=== PATIENT | female | born 1940 | race Caucasian/White ===

== ENCOUNTER 2023-06-01 23:55 | Inpatient (IN) | payer MEDICARE ==
[~2023-06-01] VITALS: Ht 165.1 cm; Wt 55.3 kg
[2023-06-02] MEDS ORDERED: CHOL200010 PO (00:18)
[2023-06-02] MEDS ORDERED: MELA3CAP2 PO (00:18)
[2023-06-02] MEDS ORDERED: GUAI-1197 PO (00:18)
[2023-06-02] MEDS ORDERED: ACET-73 PO (00:18)
[2023-06-02] MEDS ORDERED: TRIA60LO7 TOP (00:18)
[2023-06-02] MEDS ORDERED: ESCI20TA44 PO (00:18)
[2023-06-02] MEDS ORDERED: ACETAMINOPHEN 325 MG TABLET PO ONE (00:30)
[2023-06-02 01:03] LABS: CARBON DIOXIDE 30 mmol/L (21-32); CHLORIDE 104 mmol/L (98-107); CREATININE 1.1 mg/dL (0.6-1.3); GLUCOSE 92 mg/dL (74-106); POTASSIUM 3.7 mmol/L (3.5-5.1); SODIUM SERUM 141 mmol/L (136-145); UREA NITROGEN, BLOOD 26 mg/dL (7-18)
[2023-06-02] MEDS ORDERED: ACETAMINOPHEN 325 MG TABLET ONE (01:05)
[2023-06-02 01:14] LABS: ALANINE AMINOTRANSFERASE 17 U/L (14-59); ALBUMIN 3.2 g/dL (3.4-5.0); ALKALINE PHOSPHATASE 86 U/L (50-136); ASPARTATE AMINOTRANSFERASE 18 U/L (15-37); BILIRUBIN,TOTAL 0.5 mg/dL (0.2-1.0); TOTAL PROTEIN, SERUM 7.2 g/dL (6.4-8.2)
[2023-06-02 01:18] LABS: BASOPHILS % (AUTO) 0.7 % (0.0-2.0); EOSINOPHILS # (AUTO) 0.2 K/uL (0.0-0.7); EOSINOPHILS % (AUTO) 3.8 % (0.0-7.0); HEMATOCRIT 38.2 % (31.2-41.9); HEMOGLOBIN 12.7 g/dL (10.9-14.3); LYMPHOCYTES % (AUTO) 34.7 % (20.5-51.5); MEAN CORPUSCULAR HEMOGLOBIN 32.6 uug (24.7-32.8); MEAN CORPUSCULAR HGB CONC 33 g/dL (32.3-35.6); MEAN CORPUSCULAR VOLUME 97.7 fL (75.5-95.3); MONOCYTES # (AUTO) 0.5 K/uL (0.1-1.30); MONOCYTES % (AUTO) 8.8 % (0.0-11.0); NEUTROPHILS # (AUTO) 3.1 K/uL (1.8-8.9); PLATELET COUNT (AUTO) 172 K/uL (179-408); RED BLOOD CELL COUNT(AUTO) 3.91 MIL/uL (3.63-4.92); WHITE BLOOD COUNT (AUTO) 5.9 K/uL (3.8-11.8)
[2023-06-02 01:45] LABS: *BILIRUBIN,URIN NEGATIVE (NEGATIVE); *BLOOD, URINE 1+ (NEGATIVE); *COLOR,URINE YELLOW (YELLOW); *KETONES,URINE NEGATIVE (NEGATIVE); *PROTEIN,URINE NEGATIVE (NEGATIVE); *UROBILINOGEN,URINE 0.2 E.U./dl (NORMAL); LEUKOCYTE ESTERASE ,URINE 1+ (NEGATIVE); NITRITE, URINE POSITIVE (NEGATIVE); PH,URINE 5.5 (5.0-8.0); UGLUCOSE NEGATIVE (NEGATIVE)
[2023-06-02 01:46] LABS: *CLARITY,URINE CLOUDY (CLEAR)
[2023-06-02] MEDS ORDERED: ACETAMINOPHEN 650 MG SUPP.RECT RC PRN (02:00)
[2023-06-02] MEDS ORDERED: ONDANSETRON 4 MG/2 ML VIAL IV PRN (02:00)
[2023-06-02] MEDS ORDERED: MORPHINE SULFATE 2 MG/1 ML DISP.SYRIN IV PRN ×2 (02:00→08:20)
[2023-06-02] MEDS ORDERED: REMEDY ESSENTIAL ZINC PASTE 113 GM TP PRN (02:00)
[2023-06-02 03:08] LABS: BACTERIA,URINE MANY /HPF (NONE SEEN); SQUAMOUS EPITHELIAL CELL,UR FEW /HPF (NONE SEEN); WBC,URINE TNTC /HPF (0-3)
[2023-06-02] MEDS ORDERED: LORAZEPAM 2 MG/1 ML VIAL ONE ×2 (05:12→10:55)
[2023-06-02] MEDS ORDERED: LORAZEPAM 2 MG/1 ML VIAL IV ONE (05:30)
[2023-06-02] MEDS ORDERED: ENOXAPARIN SODIUM 40 MG/0.4 ML DISP.SYRIN SQ ONE (08:06)
[2023-06-02] MEDS ORDERED: PANTOPRAZOLE SODIUM 40 MG VIAL ONE (08:06)
[2023-06-02] MEDS ORDERED: CEFTRIAXONE /D5W 50ML IVPB **ER PYXIS IV ONE (08:06)
[2023-06-02] MEDS: CEFTRIAXONE 1 G in IV DEXTROSE 5% 50 ML IV SCH (08:19)
[2023-06-02] MEDS: PANTOPRAZOLE SODIUM 40 MG VIAL IV SCH (08:52)
[2023-06-02] MEDS: ENOXAPARIN SODIUM 40 MG/0.4 ML DISP.SYRIN SQ SCH (08:53)
[2023-06-02] MEDS ORDERED: LORAZEPAM 2 MG/1 ML VIAL IV PRN (12:15)
[2023-06-02] MEDS: IV D5 1/2 NS 1000 ML 1,000 ML IV PRN (15:22)
[2023-06-02] MEDS ORDERED: DONE10TA11 PO (17:44)
[2023-06-02 22:00] VITALS: BP 149/69; TEMP 98.1
[2023-06-03 04:00] VITALS: BP 138/69; TEMP 97.8
[2023-06-03 05:22] LABS: BASOPHILS % (AUTO) 0.4 % (0.0-2.0); EOSINOPHILS # (AUTO) 0.1 K/uL (0.0-0.7); EOSINOPHILS % (AUTO) 2.6 % (0.0-7.0); HEMATOCRIT 37.6 % (31.2-41.9); HEMOGLOBIN 12.8 g/dL (10.9-14.3); LYMPHOCYTES # (AUTO) 1.4 K/uL (0.8-4.8); MEAN CORPUSCULAR HEMOGLOBIN 32.7 uug (24.7-32.8); MEAN CORPUSCULAR HGB CONC 34 g/dL (32.3-35.6); MEAN CORPUSCULAR VOLUME 96.4 fL (75.5-95.3); MONOCYTES # (AUTO) 0.4 K/uL (0.1-1.30); MONOCYTES % (AUTO) 9.1 % (0.0-11.0); NEUTROPHILS # (AUTO) 2.9 K/uL (1.8-8.9); NEUTROPHILS % (AUTO) 59.9 % (38.5-71.5); PLATELET COUNT (AUTO) 169 K/uL (179-408); RED CELL DISTRIBUTION WIDTH 13.4 % (12.3-17.7); WHITE BLOOD COUNT (AUTO) 4.9 K/uL (3.8-11.8)
[2023-06-03 05:25] LABS: DIFFERENTIAL COMMENT 1
[2023-06-03 05:43] LABS: CALCIUM 8.6 mg/dL (8.5-10.1); CARBON DIOXIDE 29 mmol/L (21-32); CHLORIDE 104 mmol/L (98-107); GLUCOSE 100 mg/dL (74-106); MAGNESIUM 1.9 mg/dL (1.8-2.4); PHOSPHOROUS 2.6 mg/dL (2.5-4.9); POTASSIUM 3.6 mmol/L (3.5-5.1); SODIUM SERUM 137 mmol/L (136-145); UREA NITROGEN, BLOOD 11 mg/dL (7-18)
[2023-06-03 05:57] LABS: THYROID STIMULATING HORMONE 2.761 mIU/mL (0.358-3.740)
[2023-06-03] MEDS: IV D5 1/2 NS 1000 ML 1,000 ML IV PRN ×2 (06:02→20:30)
[2023-06-03 08:00] VITALS: BP 129/69; TEMP 97.7; O2SAT 94
[2023-06-03] MEDS: CEFTRIAXONE 1 G in IV DEXTROSE 5% 50 ML IV SCH (08:10)
[2023-06-03] MEDS: ESCITALOPRAM OXALATE 10 MG TABLET PO SCH (08:29)
[2023-06-03] MEDS: ENOXAPARIN SODIUM 40 MG/0.4 ML DISP.SYRIN SQ SCH (08:34)
[2023-06-03] MEDS: PANTOPRAZOLE SODIUM 40 MG VIAL IV SCH (08:41)
[2023-06-03] MEDS: DONEPEZIL 10 MG TABLET PO SCH (09:12)
[2023-06-03 12:00] VITALS: BP 118/54; TEMP 97.9; O2SAT 95
[2023-06-03 20:00] VITALS: BP 122/77; TEMP 97.6; O2SAT 96
[2023-06-04] VITALS (7 sets, daily range): BP systolic 116–140; BP diastolic 71–82; TEMP 97.6–98.6; O2SAT 97–100
[2023-06-04] MEDS: CEFTRIAXONE 1 G in IV DEXTROSE 5% 50 ML IV SCH (08:35)
[2023-06-04] MEDS: ESCITALOPRAM OXALATE 10 MG TABLET PO SCH (08:38)
[2023-06-04] MEDS: DONEPEZIL 10 MG TABLET PO SCH (08:38)
[2023-06-04] MEDS: PANTOPRAZOLE SODIUM 40 MG VIAL IV SCH (08:38)
[2023-06-04] MEDS: ENOXAPARIN SODIUM 40 MG/0.4 ML DISP.SYRIN SQ SCH (08:40)
[2023-06-04] MEDS: IV D5 1/2 NS 1000 ML 1,000 ML IV PRN (16:39)
[2023-06-05] VITALS (9 sets, daily range): BP systolic 102–123; BP diastolic 49–64; TEMP 97.6–98.8; O2SAT 92–97
[2023-06-05] MEDS: IV D5 1/2 NS 1000 ML 1,000 ML IV PRN (05:07)
[2023-06-05 05:26] LABS: BASOPHILS % (AUTO) 0.9 % (0.0-2.0); EOSINOPHILS # (AUTO) 0.2 K/uL (0.0-0.7); EOSINOPHILS % (AUTO) 2.9 % (0.0-7.0); LYMPHOCYTES # (AUTO) 1.8 K/uL (0.8-4.8); LYMPHOCYTES % (AUTO) 34.7 % (20.5-51.5); MEAN CORPUSCULAR HEMOGLOBIN 32.8 uug (24.7-32.8); MEAN CORPUSCULAR HGB CONC 34 g/dL (32.3-35.6); MEAN CORPUSCULAR VOLUME 96.2 fL (75.5-95.3); MONOCYTES # (AUTO) 0.5 K/uL (0.1-1.30); MONOCYTES % (AUTO) 9.6 % (0.0-11.0); NEUTROPHILS # (AUTO) 2.7 K/uL (1.8-8.9); NEUTROPHILS % (AUTO) 51.9 % (38.5-71.5); PLATELET COUNT (AUTO) 182 K/uL (179-408); RED BLOOD CELL COUNT(AUTO) 3.95 MIL/uL (3.63-4.92); RED CELL DISTRIBUTION WIDTH 13.7 % (12.3-17.7); WHITE BLOOD COUNT (AUTO) 5.2 K/uL (3.8-11.8)
[2023-06-05 05:40] LABS: DIFFERENTIAL COMMENT 1
[2023-06-05 05:49] LABS: CALCIUM 8.4 mg/dL (8.5-10.1); MAGNESIUM 2.1 mg/dL (1.8-2.4); PHOSPHOROUS 2.5 mg/dL (2.5-4.9); POTASSIUM 3.5 mmol/L (3.5-5.1)
[2023-06-05] MEDS: PANTOPRAZOLE SODIUM 40 MG TABLET.DR PO SCH (06:29)
[2023-06-05] MEDS ORDERED: VANCOMYCIN 1000 MG VIAL ONE (06:37)
[2023-06-05] MEDS ORDERED: FENTANYL CITRATE 250 MCG/5 ML AMPUL ONE (07:17)
[2023-06-05] MEDS ORDERED: ONDANSETRON 4 MG/2 ML VIAL ONE (07:50)
[2023-06-05] MEDS ORDERED: CEFAZOLIN 1 G VIAL ONE (07:50)
[2023-06-05] MEDS ORDERED: DEXAMETHASONE SOD PHOSPHATE 4 MG INJ ONE (07:50)
[2023-06-05] MEDS ORDERED: KETOROLAC TROMETHAMINE 30 MG INJ ONE (07:50)
[2023-06-05] MEDS ORDERED: SUCCINYLCHOLINE CHLORIDE 200 MG/10 ML VIAL ONE (07:50)
[2023-06-05] MEDS ORDERED: GLYCOPYRROLATE 0.2 MG/ML VIAL ONE (07:50)
[2023-06-05] MEDS ORDERED: LIDOCAINE-MPF 2% 5 ML VIAL ONE (07:50)
[2023-06-05] MEDS ORDERED: EPHEDRINE SULFATE 50 MG/ML AMPUL ONE (07:50)
[2023-06-05] MEDS ORDERED: ESMOLOL HCL 100 MG/10 ML VIAL IV ONE ×2 (07:50→09:11)
[2023-06-05] MEDS ORDERED: PROPOFOL 200 MG/20 ML BOTTLE ONE (07:50)
[2023-06-05] MEDS: ESCITALOPRAM OXALATE 10 MG TABLET PO SCH (09:00)
[2023-06-05] MEDS: DONEPEZIL 10 MG TABLET PO SCH (09:00)
[2023-06-05] MEDS ORDERED: IV D5W-0.45% NS +20 KCL 1,000 ML IV ONE (09:08)
[2023-06-05] MEDS ORDERED: FENTANYL CITRATE 100 MCG/2 ML AMPUL ONE (09:15)
[2023-06-05] MEDS: IV D5W-0.45% NS +20 KCL 1,000 ML IV PRN ×2 (10:20→21:04)
[2023-06-05] MEDS: CEFTRIAXONE 1 G in IV DEXTROSE 5% 50 ML IV SCH (11:14)
[2023-06-05] MEDS: MORPHINE SULFATE 2 MG/1 ML DISP.SYRIN IV PRN ×2 (14:27→18:12)
[2023-06-05] MEDS: HYDROCODONE/APAP 10-325 MG TABLET PO PRN (20:30)
[2023-06-06 04:00] VITALS: BP 116/57; TEMP 97.4; O2SAT 94
[2023-06-06] MEDS: PANTOPRAZOLE SODIUM 40 MG TABLET.DR PO SCH (06:36)
[2023-06-06 08:00] VITALS: BP 110/50; TEMP 97.6; O2SAT 92
[2023-06-06 08:02] VITALS: O2SAT 95
[2023-06-06] MEDS: CEFTRIAXONE 1 G in IV DEXTROSE 5% 50 ML IV SCH (08:08)
[2023-06-06] MEDS: ESCITALOPRAM OXALATE 10 MG TABLET PO SCH (08:10)
[2023-06-06] MEDS: DONEPEZIL 10 MG TABLET PO SCH (08:10)
[2023-06-06] MEDS: SULFAMETH/TRIMETH 800/160 MG TABLET PO SCH ×2 (13:00→21:03)
[2023-06-06] MEDS: IV D5W-0.45% NS +20 KCL 1,000 ML IV PRN (13:01)
[2023-06-06 16:00] VITALS: BP 112/54; TEMP 98; O2SAT 92
[2023-06-06] MEDS: HYDROCODONE/APAP 10-325 MG TABLET PO PRN (18:21)
[2023-06-06 20:00] VITALS: BP 115/69; TEMP 98.3; O2SAT 95
[2023-06-06] MEDS ORDERED: TRAZODONE 100 MG TABLET PO PRN (21:45)
[2023-06-06] MEDS ORDERED: TRAZODONE 100 MG TABLET ONE (22:47)
[2023-06-07 04:00] VITALS: BP 111/74; TEMP 97; O2SAT 96
[2023-06-07] MEDS: PANTOPRAZOLE SODIUM 40 MG TABLET.DR PO SCH (06:08)
[2023-06-07 08:00] VITALS: BP 115/69; TEMP 98; O2SAT 97
[2023-06-07] MEDS: DONEPEZIL 10 MG TABLET PO SCH (08:45)
[2023-06-07] MEDS: SULFAMETH/TRIMETH 800/160 MG TABLET PO SCH ×2 (08:45→20:42)
[2023-06-07] MEDS: ESCITALOPRAM OXALATE 10 MG TABLET PO SCH (08:46)
[2023-06-07] MEDS: HYDROCODONE/APAP 10-325 MG TABLET PO PRN (09:09)
[2023-06-07 13:08] VITALS: BP 116/69; TEMP 98; O2SAT 94
[2023-06-07] MEDS: IV D5W-0.45% NS +20 KCL 1,000 ML IV PRN (13:11)
[2023-06-07 15:24] VITALS: O2SAT 95
[2023-06-07 16:00] VITALS: BP 109/59; TEMP 97; O2SAT 95
[2023-06-07 21:00] VITALS: BP 96/38; TEMP 99.6; O2SAT 98
[2023-06-08 04:00] VITALS: BP 109/51; TEMP 98.7; O2SAT 98
[2023-06-08 04:12] VITALS: O2SAT 95
[2023-06-08] MEDS: IV D5W-0.45% NS +20 KCL 1,000 ML IV PRN (05:41)
[2023-06-08] MEDS: PANTOPRAZOLE SODIUM 40 MG TABLET.DR PO SCH (06:40)
[2023-06-08 08:00] VITALS: BP 133/58; TEMP 98.2; O2SAT 98
[2023-06-08] MEDS: ESCITALOPRAM OXALATE 10 MG TABLET PO SCH (08:21)
[2023-06-08] MEDS: DONEPEZIL 10 MG TABLET PO SCH (08:21)
[2023-06-08] MEDS: SULFAMETH/TRIMETH 800/160 MG TABLET PO SCH (08:27)
[2023-06-08] MEDS ORDERED: ENOX40DI SQ (10:15)
[2023-06-08] MEDS ORDERED: PANT40TA49 PO (10:15)
[2023-06-08] MEDS ORDERED: Sulfameth/Trimeth 800/160 Mg PO (10:15)
[2023-06-08] MEDS ORDERED: ENOXAPARIN SODIUM 40 MG/0.4 ML DISP.SYRIN SQ SCH (11:00)
[2023-06-08 12:05] VITALS: BP 96/43; TEMP 98; O2SAT 98
[2023-06-08 12:43] VITALS: O2SAT 98
[2023-06-08 16:45] VITALS: BP 112/68; O2SAT 98
[2023-06-09] MEDS ORDERED: GLUCERNA SHAKE 237 ML CAN PO SCH (09:00)
== END 2023-06-08 16:45 | DRG 521 ==
LOC: ER 06-02 00:05 → TRANSITION 06-02 05:32 → CCU 06-02 21:24
PROVIDERS: ADMIT Internal Medicine; ATTEND Internal Medicine
PROC: 0SRR0JA Replacement of Right Hip Joint, Femoral Surface with Synthetic Substitute, Uncemented, Open Approach (ICD-10-PCS; principal; 2023-06-05)
DX: S72.011A Unspecified intracapsular fracture of right femur, initial encounter for closed fracture (principal); G93.41 Metabolic encephalopathy; N39.0 Urinary tract infection, site not specified; F02.83 Dementia in other diseases classified elsewhere, unspecified severity, with mood disturbance; Z66 Do not resuscitate; Z20.822 Contact with and (suspected) exposure to COVID-19; B96.4 Proteus (mirabilis) (morganii) as the cause of diseases classified elsewhere; B96.1 Klebsiella pneumoniae [K. pneumoniae] as the cause of diseases classified elsewhere; F32.A Depression, unspecified; G47.00 Insomnia, unspecified; R53.1 Weakness; Z91.81 History of falling; G30.9 Alzheimer's disease, unspecified; R60.9 Edema, unspecified; L53.9 Erythematous condition, unspecified; X58.XXXA Exposure to other specified factors, initial encounter; Y93.9 Activity, unspecified; Y92.89 Other specified places as the place of occurrence of the external cause
CPT/HCPCS: 36415; 72170; 72192; 73501; 73502; 83735; 84100; 84443; 84484; 85025; 85610; 93005; 93307; A4649; A4663; C1758; C9113; G0378; J0330; J0690; J0696; J1100; J1650; J1885; J2060; J2270; J2405; J3010; J3370; J3490

== ENCOUNTER 2024-06-14 14:50 | Inpatient (IN) | payer MEDICARE, OTHER ==
[~2024-06-14] VITALS: Ht 165.1 cm; Wt 42.2 kg
[~2024-06-14 14:50] MED LIST: ACET-73 PO; CHOL200010 PO; DONE10TA11 PO; ENOX40DI SQ; ESCI20TA44 PO; MELA3CAP2 PO; PANT40TA49 PO; Sulfameth/Trimeth 800/160 Mg PO; TRIA60LO7 TOP
[2024-06-14] MEDS ORDERED: MAGN400O6 PO (15:18)
[2024-06-14] MEDS ORDERED: ACET-2605 PO (15:18)
[2024-06-14] MEDS ORDERED: NA P133E RC (15:18)
[2024-06-14] MEDS ORDERED: ESCI-9 PO (15:18)
[2024-06-14] MEDS ORDERED: POLY17PO4 PO (15:18)
[2024-06-14] MEDS ORDERED: ACET325C7 PO (15:18)
[2024-06-14] MEDS ORDERED: PANT20TA17 PO (15:18)
[2024-06-14] MEDS ORDERED: DONE5TAB34 PO (15:18)
[2024-06-14] MEDS ORDERED: BISA10SU61 RC (15:18)
[2024-06-14 15:19] LABS: BASOPHILS % (AUTO) 0.6 % (0.0-2.0); EOSINOPHILS # (AUTO) 0.1 K/uL (0.0-0.7); EOSINOPHILS % (AUTO) 2.8 % (0.0-7.0); HEMATOCRIT 45.2 % (31.2-41.9); HEMOGLOBIN 15.2 g/dL (10.9-14.3); LYMPHOCYTES # (AUTO) 1.7 K/uL (0.8-4.8); LYMPHOCYTES % (AUTO) 37.7 % (20.5-51.5); MEAN CORPUSCULAR HEMOGLOBIN 33.4 uug (24.7-32.8); MEAN CORPUSCULAR HGB CONC 34 g/dL (32.3-35.6); MEAN CORPUSCULAR VOLUME 99.5 fL (75.5-95.3); MONOCYTES # (AUTO) 0.3 K/uL (0.1-1.30); MONOCYTES % (AUTO) 6.6 % (0.0-11.0); NEUTROPHILS # (AUTO) 2.4 K/uL (1.8-8.9); NEUTROPHILS % (AUTO) 52.3 % (38.5-71.5); PLATELET COUNT (AUTO) 171 K/uL (179-408); RED BLOOD CELL COUNT(AUTO) 4.54 MIL/uL (3.63-4.92); RED CELL DISTRIBUTION WIDTH 13.6 % (12.3-17.7); WHITE BLOOD COUNT (AUTO) 4.6 K/uL (3.8-11.8)
[2024-06-14 15:32] LABS: DIFFERENTIAL COMMENT 1
[2024-06-14 15:48] LABS: *BILIRUBIN,URIN NEGATIVE (NEGATIVE); *BLOOD, URINE NEGATIVE (NEGATIVE); *CLARITY,URINE CLEAR (CLEAR); *COLOR,URINE YELLOW (YELLOW); *KETONES,URINE NEGATIVE (NEGATIVE); *PROTEIN,URINE NEGATIVE (NEGATIVE); *UROBILINOGEN,URINE 0.2 E.U./dl (NORMAL); LEUKOCYTE ESTERASE ,URINE NEGATIVE (NEGATIVE); NITRITE, URINE NEGATIVE (NEGATIVE); UGLUCOSE NEGATIVE (NEGATIVE)
[2024-06-14 16:23] LABS: CALCIUM 9.4 mg/dL (8.5-10.1); CARBON DIOXIDE 24 mmol/L (21-32); CHLORIDE 102 mmol/L (98-107); CREATININE 0.8 mg/dL (0.6-1.3); GLUCOSE 99 mg/dL (74-106); POTASSIUM 4.7 mmol/L (3.5-5.1); SODIUM SERUM 138 mmol/L (136-145); UREA NITROGEN, BLOOD 16 mg/dL (7-18)
[2024-06-14 16:32] LABS: ALANINE AMINOTRANSFERASE 20 U/L (14-59); ALBUMIN 3.4 g/dL (3.4-5.0); ALKALINE PHOSPHATASE 80 U/L (50-136); ASPARTATE AMINOTRANSFERASE 23 U/L (15-37); BILIRUBIN,DIRECT 0.1 mg/dL (0.0-0.2); BILIRUBIN,TOTAL 0.9 mg/dL (0.2-1.0); TOTAL PROTEIN, SERUM 7.5 g/dL (6.4-8.2)
[2024-06-14] MEDS ORDERED: MELA3TAB41 PO (17:54)
[2024-06-14 18:45] VITALS: BP 127/75; TEMP 97.7; O2SAT 99
[2024-06-14 19:00] VITALS: BP 123/63; TEMP 98.3; O2SAT 95
[2024-06-14] MEDS ORDERED: MAGNESIUM HYDROXIDE 30 ML LIQUID UDC PO PRN (19:00)
[2024-06-14] MEDS ORDERED: BISACODYL 10 MG SUPP.RECT RC PRN (19:00)
[2024-06-14] MEDS ORDERED: TEMAZEPAM 15 MG CAPSULE PO PRN (19:00)
[2024-06-14] MEDS ORDERED: FLEET ENEMA 133 ML BOTTLE RC PRN (19:00)
[2024-06-14] MEDS ORDERED: ACETAMINOPHEN 325 MG TABLET PO PRN (19:00)
[2024-06-14] MEDS ORDERED: MIRALAX 17 GM POWD.PACK PO PRN (19:00)
[2024-06-14] MEDS ORDERED: ONDANSETRON 4 MG/2 ML VIAL IV PRN (19:00)
[2024-06-14] MEDS: MELATONIN 3 MG TABLET PO SCH (21:44)
[2024-06-14] MEDS: DOCUSATE SODIUM 250 MG CAPSULE PO SCH (21:45)
[2024-06-14] MEDS: DONEPEZIL 5 MG TABLET PO SCH (21:45)
[2024-06-15] VITALS: BP 126/61; TEMP 98.3; O2SAT 96
[2024-06-15 04:00] VITALS: BP 118/77; TEMP 98; O2SAT 96
[2024-06-15 07:02] LABS: BASOPHILS % (AUTO) 0.6 % (0.0-2.0); EOSINOPHILS # (AUTO) 0.1 K/uL (0.0-0.7); EOSINOPHILS % (AUTO) 3.6 % (0.0-7.0); HEMATOCRIT 44.9 % (31.2-41.9); HEMOGLOBIN 15.3 g/dL (10.9-14.3); LYMPHOCYTES # (AUTO) 1.6 K/uL (0.8-4.8); LYMPHOCYTES % (AUTO) 42.7 % (20.5-51.5); MEAN CORPUSCULAR HEMOGLOBIN 33.9 uug (24.7-32.8); MEAN CORPUSCULAR HGB CONC 34 g/dL (32.3-35.6); MEAN CORPUSCULAR VOLUME 99.3 fL (75.5-95.3); MONOCYTES # (AUTO) 0.3 K/uL (0.1-1.30); NEUTROPHILS # (AUTO) 1.7 K/uL (1.8-8.9); NEUTROPHILS % (AUTO) 45.1 % (38.5-71.5); PLATELET COUNT (AUTO) 185 K/uL (179-408); RED BLOOD CELL COUNT(AUTO) 4.52 MIL/uL (3.63-4.92); RED CELL DISTRIBUTION WIDTH 13.3 % (12.3-17.7); WHITE BLOOD COUNT (AUTO) 3.8 K/uL (3.8-11.8)
[2024-06-15 07:33] VITALS: BP 99/59; TEMP 97.8; O2SAT 98
[2024-06-15 07:40] LABS: CALCIUM 9.2 mg/dL (8.5-10.1); CARBON DIOXIDE 30 mmol/L (21-32); CHLORIDE 102 mmol/L (98-107); CHOLESTEROL 164 mg/dL (<200); CREATININE 0.8 mg/dL (0.6-1.3); GLUCOSE 83 mg/dL (74-106); HDL CHOLESTEROL 49 mg/dL (40-60); MAGNESIUM 2.1 mg/dL (1.8-2.4); PHOSPHOROUS 3.5 mg/dL (2.5-4.9); POTASSIUM 4.1 mmol/L (3.5-5.1); SODIUM SERUM 138 mmol/L (136-145); TRIGLYCERIDES 46 MG/DL (30-150); UREA NITROGEN, BLOOD 16 mg/dL (7-18)
[2024-06-15 08:17] LABS: DIFFERENTIAL COMMENT 1
[2024-06-15] MEDS: ASPIRIN EC 81 MG TABLET.DR PO SCH (09:01)
[2024-06-15] MEDS: ESCITALOPRAM OXALATE 10 MG TABLET PO SCH (09:01)
[2024-06-15 11:39] VITALS: BP 98/65; TEMP 98.2; O2SAT 97
[2024-06-15 15:49] VITALS: BP 112/61; TEMP 98; O2SAT 94
[2024-06-15] MEDS: ENSURE ENLIVE (VAN) 240 ML LIQUID PO SCH (17:52)
[2024-06-15 20:20] VITALS: BP 133/64; TEMP 98; O2SAT 93
[2024-06-15] MEDS: DOCUSATE SODIUM 100 MG CAPSULE PO SCH (20:39)
[2024-06-16 04:20] VITALS: BP 132/50; TEMP 97.4; O2SAT 98
[2024-06-16 11:55] VITALS: BP 111/66; TEMP 97.5; O2SAT 98
[2024-06-16 15:52] VITALS: BP 102/54; TEMP 97.8; O2SAT 98
[2024-06-16] MEDS ORDERED: SWABABLE VALVE TRANSFER SET EA MC ONE (16:05)
[2024-06-16] MEDS ORDERED: IOHEXOL 350 100 ML INFUS..BTL ONE (16:06)
[2024-06-16] MEDS ORDERED: IV NORMAL SALINE 250 ML IV ONE (16:06)
[2024-06-16 19:15] VITALS: BP 111/35; TEMP 97.8; O2SAT 96
[2024-06-16] MEDS: SIMVASTATIN 40 MG TABLET PO SCH (20:54)
[2024-06-17 04:15] VITALS: BP 122/71; TEMP 97.8; O2SAT 94
[2024-06-17 06:59] LABS: BASOPHILS % (AUTO) 0.6 % (0.0-2.0); EOSINOPHILS # (AUTO) 0.1 K/uL (0.0-0.7); EOSINOPHILS % (AUTO) 2.7 % (0.0-7.0); HEMOGLOBIN 13.6 g/dL (10.9-14.3); LYMPHOCYTES # (AUTO) 1.5 K/uL (0.8-4.8); LYMPHOCYTES % (AUTO) 31.2 % (20.5-51.5); MEAN CORPUSCULAR HEMOGLOBIN 33.6 uug (24.7-32.8); MEAN CORPUSCULAR HGB CONC 34 g/dL (32.3-35.6); MEAN CORPUSCULAR VOLUME 98.7 fL (75.5-95.3); MONOCYTES # (AUTO) 0.4 K/uL (0.1-1.30); MONOCYTES % (AUTO) 8.7 % (0.0-11.0); NEUTROPHILS # (AUTO) 2.8 K/uL (1.8-8.9); NEUTROPHILS % (AUTO) 56.8 % (38.5-71.5); PLATELET COUNT (AUTO) 171 K/uL (179-408); RED BLOOD CELL COUNT(AUTO) 4.05 MIL/uL (3.63-4.92); RED CELL DISTRIBUTION WIDTH 13.4 % (12.3-17.7); WHITE BLOOD COUNT (AUTO) 4.9 K/uL (3.8-11.8)
[2024-06-17 08:04] LABS: ALANINE AMINOTRANSFERASE 19 U/L (14-59); ALKALINE PHOSPHATASE 73 U/L (50-136); ASPARTATE AMINOTRANSFERASE 10 U/L (15-37); BILIRUBIN,TOTAL 0.7 mg/dL (0.2-1.0); CALCIUM 9.1 mg/dL (8.5-10.1); CARBON DIOXIDE 29 mmol/L (21-32); CHLORIDE 108 mmol/L (98-107); CREATININE 0.8 mg/dL (0.6-1.3); GLUCOSE 96 mg/dL (74-106); MAGNESIUM 1.9 mg/dL (1.8-2.4); PHOSPHOROUS 3.4 mg/dL (2.5-4.9); POTASSIUM 4.6 mmol/L (3.5-5.1); SODIUM SERUM 144 mmol/L (136-145); TOTAL PROTEIN, SERUM 6.8 g/dL (6.4-8.2); UREA NITROGEN, BLOOD 24 mg/dL (7-18)
[2024-06-17 08:40] LABS: THYROID STIMULATING HORMONE 2.184 mIU/mL (0.358-3.740)
[2024-06-17] MEDS: MUPIROCIN 2% OINT 22 GM TUBE NS SCH (11:06)
[2024-06-17] MEDS ORDERED: ACET325T53 PO (11:23)
[2024-06-17] MEDS ORDERED: DOCU-141 PO (11:23)
[2024-06-17] MEDS ORDERED: ASPI-618 PO (11:23)
[2024-06-17] MEDS ORDERED: ATOR10TA PO (11:24)
[2024-06-17] MEDS ORDERED: Lactose-Free Food PO (11:24)
[2024-06-17] MEDS ORDERED: MUPI22OI2 NS (11:24)
[2024-06-17] MEDS ORDERED: TEMA15CA PO (11:24)
[2024-06-17 12:00] VITALS: BP 102/51; TEMP 97.6; O2SAT 98
== END 2024-06-17 15:37 | DRG 64 ==
LOC: ER 14:50 → TELE3 17:41 → MEDSURG3 06-15 12:15
PROVIDERS: ADMIT Internal Medicine; ATTEND Internal Medicine
DX: I63.81 Other cerebral infarction due to occlusion or stenosis of small artery (principal); G93.41 Metabolic encephalopathy; R64 Cachexia; Z68.1 Body mass index [BMI] 19.9 or less, adult; F02.83 Dementia in other diseases classified elsewhere, unspecified severity, with mood disturbance; R62.7 Adult failure to thrive; G30.9 Alzheimer's disease, unspecified; F02.80 Dementia in other diseases classified elsewhere, unspecified severity, without behavioral disturbance, psychotic disturbance, mood disturbance, and anxiety; E86.0 Dehydration; G47.00 Insomnia, unspecified; Z22.322 Carrier or suspected carrier of Methicillin resistant Staphylococcus aureus; M81.0 Age-related osteoporosis without current pathological fracture; M15.9 Polyosteoarthritis, unspecified; Z96.641 Presence of right artificial hip joint; Z87.440 Personal history of urinary (tract) infections; Z91.199 Patient's noncompliance with other medical treatment and regimen due to unspecified reason; R13.10 Dysphagia, unspecified; R26.2 Difficulty in walking, not elsewhere classified; K21.9 Gastro-esophageal reflux disease without esophagitis; I51.89 Other ill-defined heart diseases
CPT/HCPCS: 36415; 70450; 71045; 83735; 83921; 84100; 84443; 84484; 85025; A6213; C1758; G0378; Q9967

== ENCOUNTER 2025-01-03 19:50 | Inpatient (IN) | payer MEDICARE, OTHER ==
[~2025-01-03] VITALS: Ht 152.4 cm; Wt 45.4 kg
[~2025-01-03 19:50] MED LIST changes: -ACET-73 PO; +ACET325T53 PO; +ASPI-618 PO; +ATOR10TA PO; +BISA10SU61 RC; -CHOL200010 PO; +DOCU-141 PO; -DONE10TA11 PO; +DONE5TAB34 PO; -ENOX40DI SQ; +ESCI-9 PO; -ESCI20TA44 PO; +Lactose-Free Food PO; +MAGN400O6 PO; -MELA3CAP2 PO; +MELA3TAB41 PO; +MUPI22OI2 NS; +NA P133E RC; +PANT20TA17 PO; -PANT40TA49 PO; +POLY17PO4 PO; -Sulfameth/Trimeth 800/160 Mg PO; +TEMA15CA PO; -TRIA60LO7 TOP
[2025-01-03 20:21] LABS: BASOPHILS % (AUTO) 0.9 % (0.0-2.0); EOSINOPHILS # (AUTO) 0.2 K/uL (0.0-0.7); EOSINOPHILS % (AUTO) 3.4 % (0.0-7.0); HEMATOCRIT 41.8 % (31.2-41.9); HEMOGLOBIN 14.2 g/dL (10.9-14.3); LYMPHOCYTES # (AUTO) 1.6 K/uL (0.8-4.8); LYMPHOCYTES % (AUTO) 30.9 % (20.5-51.5); MEAN CORPUSCULAR HEMOGLOBIN 34.1 uug (24.7-32.8); MEAN CORPUSCULAR HGB CONC 34 g/dL (32.3-35.6); MEAN CORPUSCULAR VOLUME 100.5 fL (75.5-95.3); MONOCYTES # (AUTO) 0.4 K/uL (0.1-1.30); MONOCYTES % (AUTO) 7.2 % (0.0-11.0); NEUTROPHILS # (AUTO) 2.9 K/uL (1.8-8.9); NEUTROPHILS % (AUTO) 57.6 % (38.5-71.5); PLATELET COUNT (AUTO) 168 K/uL (179-408); RED BLOOD CELL COUNT(AUTO) 4.16 MIL/uL (3.63-4.92); RED CELL DISTRIBUTION WIDTH 13.3 % (12.3-17.7); WHITE BLOOD COUNT (AUTO) 5.1 K/uL (3.8-11.8)
[2025-01-03 20:23] LABS: DIFFERENTIAL COMMENT 1
[2025-01-03 20:29] LABS: CALCIUM 9.1 mg/dL (8.5-10.1); CARBON DIOXIDE 30 mmol/L (21-32); CHLORIDE 107 mmol/L (98-107); CREATININE 0.8 mg/dL (0.6-1.3); GLUCOSE 108 mg/dL (74-106); POTASSIUM 4.9 mmol/L (3.5-5.1); SODIUM SERUM 142 mmol/L (136-145); UREA NITROGEN, BLOOD 24 mg/dL (7-18)
[2025-01-03] MEDS: IV NS 1000 ML 1,000 ML IV PRN (20:34)
[2025-01-03 20:41] LABS: ALANINE AMINOTRANSFERASE 15 U/L (14-59); ALBUMIN 3.1 g/dL (3.4-5.0); ALKALINE PHOSPHATASE 95 U/L (50-136); ASPARTATE AMINOTRANSFERASE 26 U/L (15-37); BILIRUBIN,DIRECT 0.1 mg/dL (0.0-0.2); BILIRUBIN,TOTAL 0.4 mg/dL (0.2-1.0); NT-PRO BNP 104 pg/mL (0-125)
[2025-01-03] MEDS ORDERED: MIDAZOLAM HCL 2 MG/2 ML VIAL ONE (21:26)
[2025-01-03] MEDS: MIDAZOLAM HCL 2 MG/2 ML VIAL IV ONE (21:54)
[2025-01-03] MEDS ORDERED: MELA1TAB27 PO (22:06)
[2025-01-03] MEDS ORDERED: ATRO2DRO4 SL (22:06)
[2025-01-03] MEDS ORDERED: MORP20SO PO (22:06)
[2025-01-03] MEDS ORDERED: ONDA4TAB5 PO (22:06)
[2025-01-03] MEDS ORDERED: DOCU100C36 PO (22:06)
[2025-01-03 22:32] LABS: *BILIRUBIN,URIN NEGATIVE (NEGATIVE); *BLOOD, URINE 2+ (NEGATIVE); *CLARITY,URINE CLEAR (CLEAR); *COLOR,URINE YELLOW (YELLOW); *KETONES,URINE NEGATIVE (NEGATIVE); *PROTEIN,URINE NEGATIVE (NEGATIVE); *UROBILINOGEN,URINE 0.2 E.U./dl (NORMAL); LEUKOCYTE ESTERASE ,URINE NEGATIVE (NEGATIVE); NITRITE, URINE POSITIVE (NEGATIVE); PH,URINE 5.5 (5.0-8.0); UGLUCOSE NEGATIVE (NEGATIVE)
[2025-01-03 22:55] LABS: BACTERIA,URINE MANY /HPF (NONE SEEN); SQUAMOUS EPITHELIAL CELL,UR FEW /HPF (NONE SEEN); WBC,URINE 0-3 /HPF (0-3); YEAST,URINE BUDDING YEAST /HPF (NONE SEEN)
[2025-01-04] VITALS: BP 104/66; TEMP 97.6; O2SAT 99
[2025-01-04] MEDS ORDERED: ONDANSETRON 4 MG/2 ML VIAL IV PRN (00:45)
[2025-01-04] MEDS ORDERED: ACETAMINOPHEN 325 MG TABLET PO PRN (00:45)
[2025-01-04 05:23] VITALS: BP 112/60; TEMP 97.4; O2SAT 100
[2025-01-04 07:04] LABS: BASOPHILS % (AUTO) 0.9 % (0.0-2.0); EOSINOPHILS # (AUTO) 0.2 K/uL (0.0-0.7); EOSINOPHILS % (AUTO) 4.1 % (0.0-7.0); HEMATOCRIT 38.7 % (31.2-41.9); HEMOGLOBIN 13.4 g/dL (10.9-14.3); LYMPHOCYTES # (AUTO) 1.7 K/uL (0.8-4.8); MEAN CORPUSCULAR HEMOGLOBIN 34.4 uug (24.7-32.8); MEAN CORPUSCULAR HGB CONC 35 g/dL (32.3-35.6); MEAN CORPUSCULAR VOLUME 99.4 fL (75.5-95.3); MONOCYTES # (AUTO) 0.4 K/uL (0.1-1.30); MONOCYTES % (AUTO) 9.8 % (0.0-11.0); NEUTROPHILS # (AUTO) 2.1 K/uL (1.8-8.9); NEUTROPHILS % (AUTO) 47.2 % (38.5-71.5); PLATELET COUNT (AUTO) 147 K/uL (179-408); RED BLOOD CELL COUNT(AUTO) 3.89 MIL/uL (3.63-4.92); RED CELL DISTRIBUTION WIDTH 13.3 % (12.3-17.7); WHITE BLOOD COUNT (AUTO) 4.6 K/uL (3.8-11.8)
[2025-01-04 07:23] LABS: DIFFERENTIAL COMMENT 1
[2025-01-04 07:39] LABS: ALANINE AMINOTRANSFERASE 15 U/L (14-59); ALBUMIN 2.9 g/dL (3.4-5.0); ALKALINE PHOSPHATASE 71 U/L (50-136); ASPARTATE AMINOTRANSFERASE 14 U/L (15-37); BILIRUBIN,TOTAL 0.5 mg/dL (0.2-1.0); CALCIUM 8.2 mg/dL (8.5-10.1); CARBON DIOXIDE 29 mmol/L (21-32); CHLORIDE 109 mmol/L (98-107); CHOLESTEROL 153 mg/dL (<200); CREATININE 0.7 mg/dL (0.6-1.3); GLUCOSE 83 mg/dL (74-106); HDL CHOLESTEROL 44 mg/dL (40-60); MAGNESIUM 2.1 mg/dL (1.8-2.4); POTASSIUM 4.5 mmol/L (3.5-5.1); SODIUM SERUM 143 mmol/L (136-145); TOTAL PROTEIN, SERUM 6.3 g/dL (6.4-8.2); TRIGLYCERIDES 38 MG/DL (30-150); UREA NITROGEN, BLOOD 22 mg/dL (7-18)
[2025-01-04 07:51] VITALS: BP 134/65; TEMP 98.4; O2SAT 99
[2025-01-04] MEDS ORDERED: ACET650S13 RC (09:44)
[2025-01-04] MEDS ORDERED: ONDA-104 PO (09:45)
[2025-01-04] MEDS: PANTOPRAZOLE SODIUM 40 MG VIAL IV SCH (10:42)
[2025-01-04 11:17] VITALS: BP 140/67; TEMP 98.4; O2SAT 98
[2025-01-04 15:06] VITALS: BP 139/72; TEMP 98.2; O2SAT 97
[2025-01-04 19:47] VITALS: BP 126/98; TEMP 98.3; O2SAT 97
[2025-01-04] MEDS ORDERED: BISACODYL 10 MG SUPP.RECT RC PRN (21:00)
[2025-01-04] MEDS ORDERED: FLEET ENEMA 133 ML BOTTLE RC PRN (21:00)
[2025-01-04] MEDS ORDERED: MAGNESIUM HYDROXIDE 30 ML LIQUID UDC PO PRN (21:00)
[2025-01-04] MEDS ORDERED: CEFTRIAXONE /D5W 50ML IVPB **ER PYXIS IV ONE (21:27)
[2025-01-04] MEDS ORDERED: FLUCONAZOLE 200 MG/100 ML PIGGYBACK ONE (21:27)
[2025-01-04] MEDS: DOCUSATE SODIUM 100 MG CAPSULE PO SCH (21:49)
[2025-01-04] MEDS: MELATONIN 3 MG TABLET PO SCH (21:49)
[2025-01-04] MEDS: CEFTRIAXONE 1 G in IV DEXTROSE 5% 50 ML IV SCH (21:50)
[2025-01-04] MEDS: IV D5/ 0.9% NACL 1,000 ML IV PRN (21:50)
[2025-01-04] MEDS: FLUCONAZOLE 200 MG/NS 100ML IV 100 MG in PREMIXED 1 EACH IV SCH (21:50)
[2025-01-05] MEDS: TEMAZEPAM 7.5 MG CAPSULE PO PRN (00:28)
[2025-01-05 01:02] VITALS: BP 135/82; TEMP 98.1; O2SAT 96
[2025-01-05 05:17] VITALS: BP 109/73; TEMP 97.6; O2SAT 97
[2025-01-05 07:55] VITALS: BP 140/68; TEMP 97.8; O2SAT 100
[2025-01-05] MEDS: PROTEIN SUPPLEMENT (PROSTAT) 30 ML LIQUID PO SCH (08:06)
[2025-01-05 11:34] VITALS: BP 122/67; TEMP 97.6; O2SAT 98
[2025-01-05 15:00] VITALS: BP 134/72; TEMP 98.4; O2SAT 97
[2025-01-05 19:15] VITALS: BP 153/76; TEMP 98.4; O2SAT 95
[2025-01-05] MEDS: FLUCONAZOLE 100 MG TABLET PO SCH (21:32)
[2025-01-06] MEDS: TEMAZEPAM 7.5 MG CAPSULE PO PRN (00:09)
[2025-01-06 05:41] VITALS: BP 133/67; TEMP 98; O2SAT 95
[2025-01-06 07:48] LABS: ALANINE AMINOTRANSFERASE 13 U/L (14-59); ALBUMIN 3.3 g/dL (3.4-5.0); ALKALINE PHOSPHATASE 75 U/L (50-136); ASPARTATE AMINOTRANSFERASE 23 U/L (15-37); BILIRUBIN,TOTAL 0.7 mg/dL (0.2-1.0); CALCIUM 9.3 mg/dL (8.5-10.1); CARBON DIOXIDE 28 mmol/L (21-32); CHLORIDE 109 mmol/L (98-107); CREATININE 0.8 mg/dL (0.6-1.3); GLUCOSE 80 mg/dL (74-106); MAGNESIUM 1.9 mg/dL (1.8-2.4); PHOSPHOROUS 3.1 mg/dL (2.5-4.9); POTASSIUM 3.9 mmol/L (3.5-5.1); SODIUM SERUM 144 mmol/L (136-145); UREA NITROGEN, BLOOD 8 mg/dL (7-18)
[2025-01-06 08:01] LABS: BASOPHILS # (AUTO) 0.1 K/UL (0.0-0.2); BASOPHILS % (AUTO) 1.3 % (0.0-2.0); EOSINOPHILS # (AUTO) 0.2 K/uL (0.0-0.7); EOSINOPHILS % (AUTO) 3.8 % (0.0-7.0); HEMATOCRIT 43.5 % (31.2-41.9); HEMOGLOBIN 14.7 g/dL (10.9-14.3); LYMPHOCYTES # (AUTO) 1.4 K/uL (0.8-4.8); LYMPHOCYTES % (AUTO) 32.2 % (20.5-51.5); MEAN CORPUSCULAR HEMOGLOBIN 33.3 uug (24.7-32.8); MEAN CORPUSCULAR HGB CONC 34 g/dL (32.3-35.6); MEAN CORPUSCULAR VOLUME 98.6 fL (75.5-95.3); MONOCYTES # (AUTO) 0.4 K/uL (0.1-1.30); MONOCYTES % (AUTO) 8.2 % (0.0-11.0); NEUTROPHILS # (AUTO) 2.3 K/uL (1.8-8.9); NEUTROPHILS % (AUTO) 54.5 % (38.5-71.5); PLATELET COUNT (AUTO) 144 K/uL (179-408); RED BLOOD CELL COUNT(AUTO) 4.41 MIL/uL (3.63-4.92); RED CELL DISTRIBUTION WIDTH 13.3 % (12.3-17.7); WHITE BLOOD COUNT (AUTO) 4.3 K/uL (3.8-11.8)
[2025-01-06 08:03] LABS: DIFFERENTIAL COMMENT 1
[2025-01-06 10:49] VITALS: BP 126/63; TEMP 98.4; O2SAT 99
[2025-01-06] MEDS ORDERED: PROT30LI PO (14:16)
[2025-01-06 14:18] VITALS: BP 113/72; TEMP 98; O2SAT 99
== END 2025-01-06 19:05 | DRG 757 ==
LOC: ER 19:50 → TELE3 23:22 → MEDSURG3 01-05 23:05
PROVIDERS: ADMIT Internal Medicine; ATTEND Internal Medicine
DX: B37.49 Other urogenital candidiasis (principal); G92.8 Other toxic encephalopathy; Z68.1 Body mass index [BMI] 19.9 or less, adult; D68.59 Other primary thrombophilia; F01.54 Vascular dementia, unspecified severity, with anxiety; F01.53 Vascular dementia, unspecified severity, with mood disturbance; E86.0 Dehydration; R62.7 Adult failure to thrive; Z66 Do not resuscitate; B96.89 Other specified bacterial agents as the cause of diseases classified elsewhere; Z96.641 Presence of right artificial hip joint; Z87.440 Personal history of urinary (tract) infections; Z86.73 Personal history of transient ischemic attack (TIA), and cerebral infarction without residual deficits; Z74.09 Other reduced mobility; I25.2 Old myocardial infarction; E78.5 Hyperlipidemia, unspecified; G47.00 Insomnia, unspecified; F32.A Depression, unspecified; M15.9 Polyosteoarthritis, unspecified; M81.0 Age-related osteoporosis without current pathological fracture; K21.9 Gastro-esophageal reflux disease without esophagitis; Z79.899 Other long term (current) drug therapy; K59.00 Constipation, unspecified; K57.90 Diverticulosis of intestine, part unspecified, without perforation or abscess without bleeding
CPT/HCPCS: 36415; 71045; 83735; 84100; 84443; 84484; 85025; 87086; A4606; A4663; A6213; C1758; G0378; J0696; J1450; J2250; J2470; J7040; J7042